=== PATIENT | female | born 1985 | race African-American/Black ===

== ENCOUNTER 2017-05-26 22:28 | Emergency (ER) | payer MEDICAID ==
[~2017-05-26] VITALS: Ht 167.6 cm; Wt 74.8 kg
[~2017-05-26 22:28] MED LIST: ACETAMINOPHEN-1 EAC1 ORAL; KEFLEX500 MG ORAL; SILVADENE CREAM50 GM TOP; TRAMADOL HCL50 MG ORAL
[2017-05-26] MEDS ORDERED: Norco 5mg/325mg tab ORAL ONE (22:45)
[2017-05-26] MEDS ORDERED: IBUPROFEN600 MG ORAL (23:09)
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
[2017-05-26 23:10] VITALS: BP 102/66
[2017-05-26 23:13] VITALS: BP 102/66
--- NOTE | 2017-05-28 09:37 | Diagnostic Imaging Report ---
Indication: Pain Findings: 3 views of the right elbow were obtained. No acute fractures, malalignment, erosions or periostitis are identified. Bone mineralization is within normal limits. Soft tissues are unremarkable. Impression: Negative examination of the elbow.
== END 2017-05-26 23:15 | disposition home or self-care (01) ==
LOC: EMR 22:50
DX: S53.401A Unspecified sprain of right elbow, initial encounter (principal); Y04.2XXA Assault by strike against or bumped into by another person, initial encounter; Y92.9 Unspecified place or not applicable
CPT/HCPCS: 99283